=== PATIENT | male | born 1985 | race Hispanic/Latino ===

== ENCOUNTER 2020-05-15 08:02 | Emergency (ER) | payer OTHER ==
[~2020-05-15] VITALS: Ht 180.3 cm; Wt 117.9 kg
[2020-05-15] MEDS ORDERED: FORTAMET500 MG PO (08:10)
[2020-05-15] MEDS ORDERED: NORCO 5-325 TA1 EACH PO (09:25)
== END 2020-05-15 09:38 | disposition home or self-care (01) ==
LOC: ED 08:02
DX: S97.01XA Crushing injury of right ankle, initial encounter (principal); E11.9 Type 2 diabetes mellitus without complications; Z87.891 Personal history of nicotine dependence; Z79.84 Long term (current) use of oral hypoglycemic drugs; W23.0XXA Caught, crushed, jammed, or pinched between moving objects, initial encounter; Y99.0 Civilian activity done for income or pay
CPT/HCPCS: 73610; 73630; 99283-25; A9270